=== PATIENT | female | born 1945 | race African-American/Black ===

== ENCOUNTER 2019-03-20 06:37 | Inpatient (IN) | payer MEDICARE, MEDICAID ==
[~2019-03-20] VITALS: Ht 152.4 cm; Wt 52.6 kg
[2019-03-20] MEDS ORDERED: SODIUM CHLORIDE 0.9% 1,000 ML IV ONE (06:57)
[2019-03-20 08:01] LABS: CHLORIDE 115 mEq/L (98-107)
[2019-03-20 08:02] LABS: PROTHROMBIN TIME 10.5 sec (9.6-11.0)
[2019-03-20 08:16] LABS: BASOPHILS % 0.7 % (0.0-2.0); EOSINOPHILS % 5.1 % (0.0-5.0); HEMATOCRIT. 30.5 % (36.0-48.0); HEMOGLOBIN. 10.3 g/dL (12.0-16.0); LYMPHOCYTES % 39.1 % (20.0-50.0); MEAN CORPUSCULAR HEMOGLOBIN 28.5 pg (28.0-32.0); MEAN CORPUSCULAR VOLUME 84.4 fL (81.0-99.0); MEAN PLATELET VOLUME 7.7 fl (7.4-10.4); NEUTROPHILS % 48.1 % (40.0-76.0); PLATELET 413 x1000/uL (130-400); RED BLOOD CELL COUNT 3.61 mill/uL (4.2-5.4); RED CELL DISTRIBUTION WIDTH 16.2 % (11.6-14.6)
[2019-03-20] MEDS ORDERED: PANTOPRAZOLE SODIUM 40 MG/VIAL IV SCH (11:30)
[2019-03-20] MEDS ORDERED: ONDANSETRON HCL 4MG/2ML INJ IV PRN (11:30)
[2019-03-20 15:55] LABS: TOTAL IRON BINDING CAPACITY 227 ug/dL (250-450)
[2019-03-20 16:17] LABS: VITAMIN B12 SERUM 522 pg/mL (211-911)
[2019-03-20 16:18] LABS: FERRITIN 90 ng/mL (10-291)
[2019-03-20 16:23] LABS: FOLIC ACID (FOLATE) SERUM >20 ng/mL ng/mL (>5.38)
[2019-03-20 16:30] VITALS: BP 118/66
[2019-03-20 16:46] VITALS: BP 118/66
[2019-03-20] MEDS ORDERED: BISACODYL 5MG TABLET PO ONE ×2 (18:00→22:00)
[2019-03-20] MEDS ORDERED: METOCLOPRAMIDE HCL 10MG/2ML VIAL IV ONE ×2 (18:00→22:00)
[2019-03-20] MEDS: PANTOPRAZOLE SODIUM 40 MG/VIAL IV SCH (18:12)
[2019-03-20 18:45] VITALS: BP 119/43
[2019-03-20] MEDS ORDERED: SORBITOL 70% SOLN 30ML PO ONE ×2 (19:00→23:00)
[2019-03-20 20:00] VITALS: BP 141/47
[2019-03-20] MEDS: DEXT 5%/0.45% NACL 1000ML 1,000 ML IV SCH (21:30)
[2019-03-20 22:00] VITALS: BP 135/84
[2019-03-20 23:39] LABS: HEMATOCRIT 31.8 % (36.0-48.0); HEMOGLOBIN 10.3 g/dL (12.0-16.0)
[2019-03-21] VITALS (10 sets, daily range): BP systolic 103–158; BP diastolic 56–97
[2019-03-21] MEDS: DEXT 5%/0.45% NACL 1000ML 1,000 ML IV SCH (00:37)
[2019-03-21] MEDS ORDERED: BISACODYL 5MG TABLET PO ONE (02:00)
[2019-03-21] MEDS ORDERED: METOCLOPRAMIDE HCL 10MG/2ML VIAL IV ONE (02:00)
[2019-03-21] MEDS ORDERED: SORBITOL 70% SOLN 30ML PO ONE (03:00)
[2019-03-21] MEDS ORDERED: BISACODYL 5MG TABLET PO SCH (05:15)
[2019-03-21] MEDS ORDERED: METOCLOPRAMIDE HCL 10MG/2ML VIAL IV SCH (05:15)
[2019-03-21 07:02] LABS: BASOPHILS % 0.5 % (0.0-2.0); HEMATOCRIT. 32.7 % (36.0-48.0); HEMOGLOBIN. 10.9 g/dL (12.0-16.0); LYMPHOCYTES % 19.3 % (20.0-50.0); MEAN CORPUSCULAR HEMOGLOBIN 28.3 pg (28.0-32.0); MEAN CORPUSCULAR VOLUME 84.9 fL (81.0-99.0); MEAN PLATELET VOLUME 7.8 fl (7.4-10.4); MONOCYTES % 4.6 % (2.0-8.0); NEUTROPHILS % 72.6 % (40.0-76.0); PLATELET 343 x1000/uL (130-400); RED BLOOD CELL COUNT 3.85 mill/uL (4.2-5.4); RED CELL DISTRIBUTION WIDTH 15.6 % (11.6-14.6)
[2019-03-21 07:45] LABS: CHLORIDE 122 mEq/L (98-107)
[2019-03-21] MEDS: PANTOPRAZOLE SODIUM 40 MG/VIAL IV SCH ×2 (08:23→16:42)
[2019-03-21] MEDS ORDERED: BACTERIOSTATIC SODIUM CHLORIDE 0.9% 30ML VIAL IJ ONE (10:15)
[2019-03-21] MEDS ORDERED: FENTANYL CITRATE/PF 50MCG/ML 2ML VIAL ONE (15:07)
[2019-03-21] MEDS ORDERED: SIMETHICONE 40 MG/0.6 ML 30ML ONE (15:07)
[2019-03-21] MEDS ORDERED: MIDAZOLAM HCL 5 MG/5 ML VIAL ONE (15:07)
[2019-03-21] MEDS ORDERED: MIDAZOLAM HCL 5 MG/5 ML VIAL IV PRN (15:07)
[2019-03-21] MEDS: DEXTROSE 5% WATER 1,000 ML IV SCH (16:42)
[2019-03-21] MEDS: MORPHINE SULFATE 2 MG/ML CPJ (NOT FOR IM USE) IV PRN (19:39)
[2019-03-22] VITALS (12 sets, daily range): BP systolic 93–138; BP diastolic 38–91
[2019-03-22] MEDS: DEXTROSE 5% WATER 1,000 ML IV SCH ×2 (03:29→17:47)
[2019-03-22 06:51] LABS: CHLORIDE 115 mEq/L (98-107)
[2019-03-22 06:57] LABS: BASOPHILS % 0.2 % (0.0-2.0); EOSINOPHILS % 1.2 % (0.0-5.0); HEMATOCRIT. 24.5 % (36.0-48.0); LYMPHOCYTES % 15.1 % (20.0-50.0); MEAN CORPUSCULAR HEMOGLOBIN 28.3 pg (28.0-32.0); MEAN CORPUSCULAR VOLUME 86.4 fL (81.0-99.0); MEAN PLATELET VOLUME 7.7 fl (7.4-10.4); MONOCYTES % 5.9 % (2.0-8.0); NEUTROPHILS % 77.6 % (40.0-76.0); PLATELET 270 x1000/uL (130-400); RED BLOOD CELL COUNT 2.84 mill/uL (4.2-5.4); RED CELL DISTRIBUTION WIDTH 15.8 % (11.6-14.6)
[2019-03-22] MEDS: PANTOPRAZOLE SODIUM 40 MG/VIAL IV SCH ×2 (08:40→17:46)
[2019-03-23] VITALS (16 sets, daily range): BP systolic 91–130; BP diastolic 37–79
[2019-03-23 07:52] LABS: BASOPHILS % 0.4 % (0.0-2.0); EOSINOPHILS % 7.4 % (0.0-5.0); LYMPHOCYTES % 21.9 % (20.0-50.0); MEAN CORPUSCULAR HEMOGLOBIN 28.2 pg (28.0-32.0); MEAN PLATELET VOLUME 7.9 fl (7.4-10.4); MONOCYTES % 4.5 % (2.0-8.0); NEUTROPHILS % 65.8 % (40.0-76.0); PLATELET 252 x1000/uL (130-400); RED BLOOD CELL COUNT 2.45 mill/uL (4.2-5.4); RED CELL DISTRIBUTION WIDTH 15.6 % (11.6-14.6)
[2019-03-23 08:17] LABS: HEMATOCRIT. 21.1 % (36.0-48.0); HEMOGLOBIN. 6.9 g/dL (12.0-16.0)
[2019-03-23] MEDS: PANTOPRAZOLE SODIUM 40 MG/VIAL IV SCH ×2 (08:55→16:53)
[2019-03-23] MEDS: MORPHINE SULFATE 2 MG/ML CPJ (NOT FOR IM USE) IV PRN (12:23)
[2019-03-23] MEDS: DEXTROSE 5% WATER 1,000 ML IV SCH ×2 (17:48→17:52)
[2019-03-24] VITALS (16 sets, daily range): BP systolic 105–140; BP diastolic 43–76
[2019-03-24 07:04] LABS: BASOPHILS % 0.3 % (0.0-2.0); EOSINOPHILS % 4.3 % (0.0-5.0); HEMATOCRIT. 29.8 % (36.0-48.0); LYMPHOCYTES % 13.9 % (20.0-50.0); MEAN CORPUSCULAR HEMOGLOBIN 28.7 pg (28.0-32.0); MEAN CORPUSCULAR VOLUME 85.5 fL (81.0-99.0); MEAN PLATELET VOLUME 7.9 fl (7.4-10.4); MONOCYTES % 6.3 % (2.0-8.0); NEUTROPHILS % 75.2 % (40.0-76.0); PLATELET 232 x1000/uL (130-400); RED BLOOD CELL COUNT 3.49 mill/uL (4.2-5.4); RED CELL DISTRIBUTION WIDTH 15.6 % (11.6-14.6)
[2019-03-24 07:24] LABS: CHLORIDE 113 mEq/L (98-107)
[2019-03-24] MEDS: DEXTROSE 5% WATER 1,000 ML IV SCH ×2 (08:10→18:11)
[2019-03-24] MEDS: PANTOPRAZOLE SODIUM 40 MG/VIAL IV SCH ×2 (09:49→18:11)
[2019-03-24] MEDS: MORPHINE SULFATE 2 MG/ML CPJ (NOT FOR IM USE) IV PRN ×2 (16:02→22:04)
[2019-03-25] VITALS (9 sets, daily range): BP systolic 117–130; BP diastolic 20–88
[2019-03-25] MEDS: PANTOPRAZOLE SODIUM 40 MG/VIAL IV SCH ×2 (08:40→17:12)
[2019-03-25] MEDS: DEXTROSE 5% WATER 1,000 ML IV SCH (08:41)
[2019-03-25] MEDS: MORPHINE SULFATE 2 MG/ML CPJ (NOT FOR IM USE) IV PRN (08:41)
[2019-03-25 09:09] LABS: BASOPHILS % 0.4 % (0.0-2.0); EOSINOPHILS % 5.5 % (0.0-5.0); HEMATOCRIT. 28.5 % (36.0-48.0); HEMOGLOBIN. 9.7 g/dL (12.0-16.0); LYMPHOCYTES % 19.3 % (20.0-50.0); MEAN CORPUSCULAR HEMOGLOBIN 29.6 pg (28.0-32.0); MEAN CORPUSCULAR VOLUME 86.5 fL (81.0-99.0); MEAN PLATELET VOLUME 7.2 fl (7.4-10.4); MONOCYTES % 5.9 % (2.0-8.0); NEUTROPHILS % 68.9 % (40.0-76.0); PLATELET 244 x1000/uL (130-400); RED BLOOD CELL COUNT 3.29 mill/uL (4.2-5.4); RED CELL DISTRIBUTION WIDTH 15.8 % (11.6-14.6)
[2019-03-25] MEDS ORDERED: MORPHINE SULFATE 2 MG/ML CPJ (NOT FOR IM USE) IV PRN (21:30)
[2019-03-26] VITALS: BP 107/59
[2019-03-26] MEDS: DEXTROSE 5% WATER 1,000 ML IV SCH ×2 (02:19→13:16)
[2019-03-26 04:00] VITALS: BP 116/62
[2019-03-26 06:10] LABS: BASOPHILS % 0.4 % (0.0-2.0); EOSINOPHILS % 5.3 % (0.0-5.0); LYMPHOCYTES % 26.3 % (20.0-50.0); MEAN CORPUSCULAR VOLUME 87.5 fL (81.0-99.0); MEAN PLATELET VOLUME 8.3 fl (7.4-10.4); MONOCYTES % 7.1 % (2.0-8.0); NEUTROPHILS % 60.9 % (40.0-76.0); PLATELET 274 x1000/uL (130-400); RED BLOOD CELL COUNT 3.09 mill/uL (4.2-5.4); RED CELL DISTRIBUTION WIDTH 15.6 % (11.6-14.6)
[2019-03-26] MEDS: MORPHINE SULFATE 2 MG/ML CPJ (NOT FOR IM USE) IV PRN ×2 (06:36→23:56)
[2019-03-26 08:00] VITALS: BP 95/47
[2019-03-26] MEDS: PANTOPRAZOLE SODIUM 40 MG/VIAL IV SCH ×2 (09:42→18:21)
[2019-03-26 10:52] LABS: CHLORIDE 109 mEq/L (98-107)
[2019-03-26 12:00] VITALS: BP 100/56
[2019-03-26 16:00] VITALS: BP 100/58
[2019-03-26 20:53] VITALS: BP 102/66
[2019-03-27 00:55] VITALS: BP 108/72
[2019-03-27] MEDS: DEXTROSE 5% WATER 1,000 ML IV SCH ×2 (03:26→17:24)
[2019-03-27 04:00] VITALS: BP 137/67
[2019-03-27 08:00] VITALS: BP 127/57
[2019-03-27] MEDS: PANTOPRAZOLE SODIUM 40 MG/VIAL IV SCH ×2 (09:55→17:20)
[2019-03-27 13:07] VITALS: BP 112/52
[2019-03-27 16:33] VITALS: BP 124/56
[2019-03-27 20:12] VITALS: BP 103/68
[2019-03-28] VITALS: BP 131/66
[2019-03-28] MEDS: MORPHINE SULFATE 2 MG/ML CPJ (NOT FOR IM USE) IV PRN ×3 (00:57→11:12)
[2019-03-28 04:00] VITALS: BP 90/43
[2019-03-28] MEDS: DEXTROSE 5% WATER 1,000 ML IV SCH (06:29)
[2019-03-28 08:47] VITALS: BP 127/46
[2019-03-28] MEDS: PANTOPRAZOLE SODIUM 40 MG/VIAL IV SCH (11:06)
[2019-03-28 11:27] VITALS: BP 145/38
[2019-03-28 14:31] VITALS: BP 145/38
[2019-03-28 16:03] VITALS: BP 124/70
== END 2019-03-28 16:35 | disposition home or self-care (01) | DRG 377 ==
LOC: ER 06:37 → 3WST 09:19 → EDBEDREQTM 09:28 → EDBEDREQ 09:28 → CANRESERV 13:20 → ENRESERV 13:20 → EDBEDREQSVC 15:54 → ENRESERV 15:58 → 7WST 03-25 12:04
PROVIDERS: ADMIT Hospitalist; ATTEND Hospitalist
PROC: 30233N1 Transfusion of Nonautologous Red Blood Cells into Peripheral Vein, Percutaneous Approach (ICD-10-PCS; 2019-03-20)
PROC: 0DJD8ZZ Inspection of Lower Intestinal Tract, Via Natural or Artificial Opening Endoscopic (ICD-10-PCS; principal; 2019-03-21)
DX: K92.2 Gastrointestinal hemorrhage, unspecified (principal); E43 Unspecified severe protein-calorie malnutrition; D62 Acute posthemorrhagic anemia; E87.0 Hyperosmolality and hypernatremia; I10 Essential (primary) hypertension; I73.9 Peripheral vascular disease, unspecified; Z89.511 Acquired absence of right leg below knee; N93.9 Abnormal uterine and vaginal bleeding, unspecified; E78.5 Hyperlipidemia, unspecified; I95.9 Hypotension, unspecified; D72.829 Elevated white blood cell count, unspecified; Z68.22 Body mass index [BMI] 22.0-22.9, adult
CPT/HCPCS: 36415; 78278; 80048; 82270; 82607; 82728; 82746; 83540; 83550; 83735; 85014; 85018; 86850; 86900; 86920; 93005; 93880; 96360; 96361; 99291; A9560; C1893; C9113; J2250; J2270; J2405; J2765; J3010; J3490; J7030; J7070; P9016